=== PATIENT | female | born 1980 | race African-American/Black ===

== ENCOUNTER 2021-06-07 12:06 | Inpatient (IN) | payer OTHER ==
[2021-06-07] MEDS ORDERED: MAG HYDROX/AL HYDROX/SIMETH 30 ML UNIT-DOSE CUP PO PRN (13:06)
[2021-06-07] MEDS ORDERED: ACETAMINOPHEN 325 MG TABLET (FP) PO PRN (13:06)
[2021-06-07] MEDS ORDERED: MAGNESIUM CITRATE 300 ML BOTTLE PO PRN (13:06)
[2021-06-07] MEDS ORDERED: MENTHOL/PHENOL 1 EACH UD MM PRN (13:06)
[2021-06-07] MEDS ORDERED: LOPERAMIDE HCL 2 MG CAPSULE PO PRN (13:06)
[2021-06-07] MEDS ORDERED: BISMUTH SUBSALICYLATE 262 MG/15 ML BTL PO PRN (13:06)
[2021-06-07] MEDS ORDERED: MAGNESIUM HYDROX 2400MG/30ML ORAL SUSPENSION 30 ML CUP PO PRN (13:06)
[2021-06-07] MEDS ORDERED: chlordiazePOXIDE HCL 25 MG CAPSULE PO PRN (13:06)
[2021-06-07 13:43] VITALS: BMI 17.4
[2021-06-07] MEDS ORDERED: hydrOXYzine PAMOATE 25 MG CAPSULE (FP) PO SCH (14:00)
[2021-06-07] MEDS: ACETAMINOPHEN 325 MG TABLET (FP) PO PRN (15:34)
[2021-06-07] MEDS: ONDANSETRON *ODT* 4 MG TABLET SL PRN (17:32)
[2021-06-07] MEDS: chlordiazePOXIDE HCL 25 MG CAPSULE PO SCH ×2 (17:32→22:11)
[2021-06-07] MEDS: THIAMINE HCL 100 MG TABLET (FP) PO SCH (22:10)
[2021-06-07] MEDS: MELATONIN 5 MG TABLETS PO SCH (22:10)
[2021-06-07] MEDS: IBUPROFEN 400 MG TABLET (FP) PO PRN (22:12)
[2021-06-08] MEDS: chlordiazePOXIDE HCL 25 MG CAPSULE PO SCH ×4 (06:26→22:00)
[2021-06-08] MEDS: METHOCARBAMOL 500 MG TABLET PO PRN ×2 (06:27→22:01)
[2021-06-08] MEDS: PRENATAL VITAMINS W/ FOLIC ACID TABLET (FP) PO SCH (10:14)
[2021-06-08] MEDS: ONDANSETRON *ODT* 4 MG TABLET SL PRN ×2 (11:04→17:57)
[2021-06-08 12:35] LABS: HEMATOCRIT 42.6 % (32.4-45.2); HEMOGLOBIN 14.7 GM/dL (10.7-15.3); MCH 31.2 pg (25.7-33.7); MCHC 34.5 g/dl (32.0-36.0); MEAN CELL VOLUME 90.3 fl (80-96); MEAN PLT VOLUME 7.9 fl (7.5-11.1); PLATELET COUNT 172 10^3/uL (134-434); RBC 4.71 M/mm3 (3.60-5.2); RDW 14.8 % (11.6-15.6); WHITE BLOOD COUNT 2.5 K/mm3 (4.0-10.0)
[2021-06-08 12:39] LABS: CALCIUM 9.4 mg/dL (8.5-10.1)
[2021-06-08 12:40] LABS: ALBUMIN 4.3 g/dl (3.4-5.0); BLOOD UREA NITROGEN 7.8 mg/dL (7-18)
[2021-06-08 12:43] LABS: CREATININE 0.7 mg/dL (0.55-1.3)
[2021-06-08 12:44] LABS: BILIRUBIN,TOTAL 3.7 mg/dL (0.2-1); TOT PROT 8.4 g/dl (6.4-8.2)
[2021-06-08] MEDS: IBUPROFEN 400 MG TABLET (FP) PO PRN (17:18)
[2021-06-08] MEDS: THIAMINE HCL 100 MG TABLET (FP) PO SCH (22:00)
[2021-06-08] MEDS: MELATONIN 5 MG TABLETS PO SCH (22:00)
[2021-06-09] MEDS: ACETAMINOPHEN 325 MG TABLET (FP) PO PRN ×3 (01:45→18:00)
[2021-06-09] MEDS: chlordiazePOXIDE HCL 25 MG CAPSULE PO SCH ×4 (05:49→22:16)
[2021-06-09] MEDS: PRENATAL VITAMINS W/ FOLIC ACID TABLET (FP) PO SCH (10:22)
[2021-06-09] MEDS: NICOTINE 10 MG CARTRIDGE (INHALER) IH PRN (12:20)
[2021-06-09] MEDS: IBUPROFEN 400 MG TABLET (FP) PO PRN (15:02)
[2021-06-09] MEDS: hydrOXYzine PAMOATE 25 MG CAPSULE (FP) PO PRN (15:02)
[2021-06-09] MEDS: ONDANSETRON *ODT* 4 MG TABLET SL PRN (18:04)
[2021-06-09 19:11] LABS: SARS-CoV-2 NAA Not Detected (Not Detected)
[2021-06-09] MEDS: MELATONIN 5 MG TABLETS PO SCH (22:16)
[2021-06-09] MEDS: THIAMINE HCL 100 MG TABLET (FP) PO SCH (22:16)
[2021-06-10] MEDS ORDERED: chlordiazePOXIDE HCL 10 MG CAPSULE PO PRN
[2021-06-10] MEDS: chlordiazePOXIDE HCL 10 MG CAPSULE PO SCH ×5 (06:35→22:24)
[2021-06-10] MEDS: ONDANSETRON *ODT* 4 MG TABLET SL PRN ×2 (07:35→22:29)
[2021-06-10] MEDS: METHOCARBAMOL 500 MG TABLET PO PRN ×2 (07:36→17:39)
[2021-06-10] MEDS: ACETAMINOPHEN 325 MG TABLET (FP) PO PRN ×2 (07:37→22:23)
[2021-06-10] MEDS: PRENATAL VITAMINS W/ FOLIC ACID TABLET (FP) PO SCH (10:22)
[2021-06-10] MEDS: NICOTINE 10 MG CARTRIDGE (INHALER) IH PRN ×2 (11:49→19:40)
[2021-06-10] MEDS ORDERED: ONDANSETRON *ODT* 4 MG TABLET SL ONE (12:30)
[2021-06-10] MEDS: IBUPROFEN 400 MG TABLET (FP) PO PRN (16:32)
[2021-06-10] MEDS: hydrOXYzine PAMOATE 25 MG CAPSULE (FP) PO PRN (20:28)
[2021-06-10] MEDS: THIAMINE HCL 100 MG TABLET (FP) PO SCH (22:23)
[2021-06-10] MEDS: MELATONIN 5 MG TABLETS PO SCH (22:23)
[2021-06-11] MEDS: chlordiazePOXIDE HCL 10 MG CAPSULE PO SCH ×2 (06:01→17:42)
[2021-06-11] MEDS: METHOCARBAMOL 500 MG TABLET PO PRN ×2 (06:01→22:09)
[2021-06-11] MEDS: ONDANSETRON *ODT* 4 MG TABLET SL PRN ×2 (06:08→14:39)
[2021-06-11] MEDS: hydrOXYzine PAMOATE 25 MG CAPSULE (FP) PO PRN ×4 (07:54→22:09)
[2021-06-11] MEDS: NICOTINE 10 MG CARTRIDGE (INHALER) IH PRN ×2 (07:55→18:25)
[2021-06-11] MEDS: PRENATAL VITAMINS W/ FOLIC ACID TABLET (FP) PO SCH (10:20)
[2021-06-11] MEDS: MELATONIN 5 MG TABLETS PO SCH (22:08)
[2021-06-11] MEDS: THIAMINE HCL 100 MG TABLET (FP) PO SCH (22:08)
[2021-06-12] MEDS ORDERED: chlordiazePOXIDE HCL 10 MG CAPSULE PO ONE (05:00)
[2021-06-12] MEDS: ACETAMINOPHEN 325 MG TABLET (FP) PO PRN (06:12)
[2021-06-12] MEDS: METHOCARBAMOL 500 MG TABLET PO PRN (06:12)
[2021-06-12] MEDS: hydrOXYzine PAMOATE 25 MG CAPSULE (FP) PO PRN (06:12)
[2021-06-12] MEDS: NICOTINE 10 MG CARTRIDGE (INHALER) IH PRN (06:30)
[2021-06-12 09:08] VITALS: BP 116/82; PULSE 95; TEMP 98.7
== END 2021-06-12 09:38 | disposition home or self-care (01) | DRG 775 ==
LOC: YASAS 12:06 → Y3N 13:41
PROVIDERS: ADMIT Allergy & Immunology; ATTEND Allergy & Immunology
PROC: HZ2ZZZZ Detoxification Services for Substance Abuse Treatment (ICD-10-PCS; principal; 2021-06-07)
DX: F10.230 Alcohol dependence with withdrawal, uncomplicated (principal); F12.10 Cannabis abuse, uncomplicated; F17.210 Nicotine dependence, cigarettes, uncomplicated; I10 Essential (primary) hypertension; R94.5 Abnormal results of liver function studies; D72.819 Decreased white blood cell count, unspecified; R00.0 Tachycardia, unspecified
CPT/HCPCS: 36415; 80053; 81025; 85027; 86780; 87811; 93005; 93010; C9803; Q0162; U0003; U0005